=== PATIENT | female | born 1990 | race Caucasian/White ===

== ENCOUNTER 2016-11-30 04:00 | Inpatient (IN) | payer OTHER ==
[2016-11-30 04:40] LABS: BASOPHIL 0.2 % (0-2.0); EOSINOPHIL 0.4 % (0-4.5); MCH 29.5 pg (25.7-33.7); MCHC 32.2 g/dl (32.0-36.0); MEAN CELL VOLUME 91.6 fl (80-96); MEAN PLT VOLUME 9.9 fl (7.5-11.1); NEUTROPHILS 82.9 % (42.8-82.8); PLATELET COUNT 160 K/MM3 (134-434); RDW 15.2 % (11.6-15.6); WHITE BLOOD COUNT 16.4 K/mm3 (4.0-10.0)
[2016-11-30 05:04] LABS: INR 1.1 (0.82-1.09); PROTHROMBIN TIME (PATIENT) 12.1 SEC (9.98-11.88)
[2016-11-30 05:06] LABS: ACTIVATED PTT 26.3 SECONDS (26.9-34.4)
[2016-11-30 05:12] LABS: ALK PHOS 79 U/L (45-117); ANION GAP 13 (8-16); BILIRUBIN,TOTAL 0.2 mg/dL (0.2-1.0); CALCIUM 8.6 mg/dL (8.5-10.1); CO2 24 mmol/L (21-32); CREATININE 0.7 mg/dL (0.55-1.02); GLUCOSE,RANDOM 121 mg/dL (74-106); SGOT/AST 15 U/L (15-37); SGPT/ALT 28 U/L (12-78); TOT PROT 6.9 g/dl (6.4-8.2)
[2016-11-30 05:34] LABS: HIV 1 & 2 AB NEGATIVE; HIV 1 AGp24 NEGATIVE
--- NOTE | 2016-11-30 05:38 | HP ---
Past Medical History - Primary Care Physician PCP:: [facility] - Admission Chief Complaint: 26 @ 21wk4d presents fully dilated and pushing. History of Present Illness: 26 @ 21wk4d presents fully dilated and pushing. PNC at [facility]. ANC c/b 1. GBS bacteruria 2. CL on 11/19 was 2.5cm without evidence of funneling. Follow up appointment was made for 11/25, patient missed appointment. History Source: Patient Limitations to Obtaining History: No Limitations - Past Medical History HOOKER ON: No: Alzheimer's, CVA, Dementia, Migraine, Multiple Sclerosis, Peripheral Neuropathy, Parkinson's, Seizure, Syncope, TIA, Vertigo, Other Cardiovascular: No: AFIB, Aneurysm, Aortic Insufficiency, Aortic Stenosis, CAD, CHF, Deep Vein Thrombosis, HTN, Hyperlipdemia, PR, Mitral Insufficiency, Mitral Stenosis, Murmur, Pulmonary Hypertension, Other Pulmonary: No: Asthma, Bronchitis, Cancer, COPD, O2 Dependent, Pneumonia, Previously Intubated, Pulmonary Embolus, Pulmonary Fibrosis, Sleep Apnea, Other Gastrointestinal: No: Ascites, Cancer, Constipation, Crohn's Disease, Diverticulitis, Diverticulosis, Esophageal Varices, Gastritis, GERD, GI Bleed, Hemorrhoids, Hiatal Hernia, Inflamatory Bowel Disease, Irritable Bowel Disease, Pancreatitis, Peptic Ulcer Disease, Ulcerative Colitis, Other Hepatobiliary: No: Cirrhosis, Cholelithiasis, Cholecystitis, Choledocholithiasis , Hepatitis A, Hepatitis B, Hepatitis C, Other Renal/: No: Renal Failure, Renal Inusuff, BPH, Cancer, Hematuria, Hemodialysis , Neurogenic Bladder, Renal Calculi, UTI, Other ...: 1 ...Para: 0 ...Term: 0 ...: 0 ...Spon : 0 ...Induced : 0 ...Multiple Gestation: 0 ... Weeks Gestation by Dates: 21.4 ...EDC by Dates: 04/09/17 ...EDC by Sono: 04/08/17 Heme/Onc: No: Anemia, B12 Deficiency, Bleeding Disorder, Cancer, Current Chemotherapy, Current Radiation Therapy, Hemochromatosis, Hypercoaguable State, Myeloproliferative Synd, Sickle Cell Disease, Sickle Cell Trait, Thrombocytopenia, Other Infectious Disease: No: AIDS, C-Diff, Herpes Zoster, HIV, MRSA, STD's, Tuberculosis, VREF, Other Psych: No: Addictions, Anxiety, Bipolar, Depression, Panic, Psychosis, Schizophrenia, Other Musculoskeletal: No: Bursitis, Chronic low back pain, Hemiparesis, Hemiplegia, Osteoarthritis, Paraplegia, Other Rheumatology: No: Fibromyalgia, Gout, Lupus, Rheumatoid Arthritis, Sarcoidosis, Vasculitis, Other Endocrine: No: Dare's Disease, Alissa's Disease, Diabetes Insipidus, Diabetes Mellitus, Hyperparathyroidism, Hyperthyroidism, Hypothyroidism, Osteopenia, SIADH, Other Dermatology: No: Basal Cell, Cellulitis, Eczema, Melanoma, Psoriasis, Squamous Cell, Other - Past Surgical History Past Surgical History: Yes: None Hx Myomectomy: No Hx Transabdominal Cerclage: No - Smoking History Smoking history: Never smoked - Alcohol/Substance Use Hx Alcohol Use: No Home Medications - Allergies Allergies/Adverse Reactions: Allergies Allergy/AdvReac Type Severity Reaction Status Date / Time No Known Allergies Allergy Verified 09/27/16 14:44 - Home Medications Home Medications: Ambulatory Orders Ondansetron [Ondansetron Odt] 8 mg PO TID #30 tab.rapdis 09/23/16 Family Disease History - Family Disease History Family History: Unremarkable Review of Systems - Review of Systems Constitutional: denies: No Symptoms, Chills, Diaphoresis, Fever, Lethargy, Loss of Appetite, Malaise, Night Sweats, Unintentional Wgt. Loss, Weakness, Other Eyes: denies: No Symptoms, Blind Spots, Blurred Vision, Double Vision, Eye Pain , Floaters, Photophobia, Recent Change in Vision, Other Neck: denies: No Symptoms, Decreased ROM, Lumps, Pain on Movement, Stiffness, Swollen Glands, Tenderness, Other Cardiovascular: reports: No Symptoms Respiratory: reports: No Symptoms Gastrointestinal: reports: Other (uterine contractions) Genitourinary: reports: No Symptoms Musculoskeletal: reports: No Symptoms Integumentary: reports: No Symptoms Neurological: reports: No Symptoms Endocrine: reports: No Symptoms Hematology/Lymphatic: reports: No Symptoms Psychiatric: reports: No Symptoms Physical Exam - Maternity Constitutional: Yes: Well Nourished, No Distress Eyes: Yes: WNL HENT: Yes: WNL, Atraumatic, Normocephalic Neck: Yes: WNL Cardiovascular: Yes: WNL, Regular Rate and Rhythm Lungs: Clear to auscultation Breast(s): Yes: WNL - Abdominal Exam/OB Fundal Height: 20 Number of Fetuses: Single Presentation: Breech Contractions: Yes Regularity: Regular Intensity: Strong Monitor Mode: External Heart Rate (range): 150 - Vaginal Exam/OB Vaginal Bleediing: No Speculum Exam: Yes Dilatation (cm): 10 Effacement (%): 100 Amniotic Membrane Status: Intact Presentation: Double Footling Breech Station: +3 - Physical Exam Musculoskeletal: Yes: WNL Extremities: Yes: WNL Edema: No Integumentary: Yes: WNL Deep Tendon Reflex Grade: Absent 0 ...Motor Strength: WNL Psychiatric: Yes: WNL - Labs Lab Results: CBC, BMP 11/30/16 04:25 11/30/16 04:25 Problem List - Problems (1) 21 weeks gestation of Code(s): Z3A.21 - 21 WEEKS GESTATION OF (2) labor in second trimester with delivery Code(s): O60.10X0 - LABOR W DELIVERY, UNSP TRIMESTER, UNSP Assessment/Plan 26 @ 21wk4d in labor, fully dilated, requesting to push. Intact. FHR 165. VSS. AF. -Admit to L&D -Neonatology called -anticipate PTD
--- NOTE | 2016-11-30 05:53 | PN ---
Delivery - Delivery Vaginal Delivery: Spontaneous Type of Anesthesia: None Episiotomy/Laceration: None EBL (cc): 250 Delivery, Single - Stages of Labor Date 1st Stage Initiatied: 11/29/16 Time 1st Stage Initiated: 14:00 Date 2nd Stage Initiated: 11/30/16 Time 2nd Stage Initiated: 04:45 Date of Delivery: 11/30/16 Time of Delivery: 04:48 Date Placenta Delivered: 11/30/16 Time Placenta Delivered: 05:17 Placenta: Yes: Spontaneous, Manual Removal (Small portion of placenta at fundus removed with ring forceps under ultrasound guidance.) - Condition of [place] Ring Sewer/Systems Integration Engineer Present: Yes Gender: Male Remarks - Remarks Remarks: Patient fully dilated and pushing on arrival. Neonatology present. Neonatology explained there would be no resuscitation efforts at 21 weeks. Patient asked with she would like to hold the baby once delivered or if she would like it handed to RN, patient opted to hold baby. After 2 pushes, male delivered in double footling breech position. Membranes ruptured while pushing. Body delivered, followed by head at 4:48am. Cord clamped and cut. Baby handed to mom. Pitocin started, placenta removed. Small amount of placenta retained. Bedside ultrasound showed 1cm portion of placenta at fundus which was removed with ring forceps, afterwhich strip was thin and there was no color flow. Dr Dana Alves called to room and agreed on ultrasound it appeared there was no remaining placenta. Fundus firm, minimal bleeding. Total EBL 250cc. 's given by formulation technician Dr Patel, 1 minute: 1/0, at 5 minutes: 0/0. No anomalies noted. No nuchal cord present. Dr Patel formulation technician present for delivery and answered all questions regarding survival.
[2016-11-30] MEDS ORDERED: IBUPROFEN 600 MG TABLET (FP) PO PRN (06:03)
[2016-11-30] MEDS ORDERED: WITCH HAZEL 50% (TUCKS) 40 PAD/JAR PAD TP PRN (06:03)
[2016-11-30] MEDS ORDERED: BENZOCAINE 28 GM HEMORRHOIDAL OINTMENT TP PRN (06:03)
[2016-11-30] MEDS ORDERED: BENZOCAINE 20% 57 GM BOTTLE TP PRN (06:03)
[2016-11-30] MEDS ORDERED: METHYLERGONOVINE MALEATE 0.2 MG/1 ML AMP IM PRN (06:03)
[2016-11-30] MEDS ORDERED: BISACODYL 10 MG SUPP.RECT RC PRN (06:03)
[2016-11-30] MEDS ORDERED: ACETAMINOPHEN 325 MG TABLET (FP) PO PRN (06:03)
[2016-11-30] MEDS ORDERED: ceFAZolin 2 GRAM PREMIX BAG IVPB ONE (06:05)
[2016-11-30] MEDS ORDERED: MEPERIDINE HCL CARPU-JECT 50 MG/1 ML DISP.SYRIN IVPB ONE (06:07)
[2016-11-30 06:14] VITALS: BMI 23.0
[2016-11-30] MEDS ORDERED: DEXTROSE 5%-LACTATED RINGERS 1,000 ML IV SCH (06:15)
[2016-11-30] MEDS ORDERED: D5W-LR W/ 20 UNITS OXYTOCIN 1,000 ML IV SCH (06:15)
--- NOTE | 2016-11-30 06:34 | PN ---
Progress Note (short form) - Note Progress Note: Called to delivery at 21 weeks gestation. Mother presented fully dilated and delivered shortly after presentation. ROM was at delivery. At , initial heart beat present. Fetus noted to have translucent skin, fused eye lids, small. Apgars 1/0 at 1 and 5 minutes. Both to parents multiple times and informed of pre-viable status of fetus.
[2016-11-30] MEDS ORDERED: CEFAZOLIN 1 GM/D5W 50 ML IVPB SCH (13:00)
[2016-11-30 15:04] VITALS: BP 116/64; PULSE 99; TEMP 98.3
[2016-12-01] MEDS ORDERED: SENNOSIDES/DOCUSATE COMBO (SENNA PLUS) TABLET (UD) PO PRN (22:00)
--- NOTE | 2016-12-03 14:37 | PATH ---
Surgical Pathology Report Patient Name: PONCHO LUCIA Med. Rec. #: [id number] /Age/Gender: 1990 (Age: 26) / F Account: [id number] Location: [facility] OBS/ADMINISTRATION INTERN Taken: 11/30/2016 Received: 11/30/2016 Reported: 12/03/2016 Physicians: Yakelin Welch M.D Specimen(s) Received PLACENTA Clinical History 21.4 weeks gestation; short cervix, Spontaneous vaginal delivery Final Diagnosis PLACENTA, DELIVERY: MULTIFOCALLY DISRUPTED IMMATURE SECOND TRIMESTER PLACENTA WITH MILD PREVILLOUS, PERIVILLOUS, AND PRECHORIONIC FIBRIN DEPOSITION, THREE VESSEL UMBILICAL CORD, AND PLACENTAL MEMBRANES WITH FOCAL EARLY ACUTE CHORIOAMNIONITIS. Electronically Signed George Zepeda M.D. Gross Description The specimen is received fresh, labeled 'placenta" and is a 209 gram, 12.0 x 11.0 x 2.0 cm placenta with attached membranes and umbilical cord. The attached membranes are dolan, translucent focal opacities and insert marginally. The umbilical cord measures 16 cm in length and averages 0.8 cm in diameter. The cord inserts eccentrically, 2.5 cm to the nearest margin. No true knots or strictures are identified. Cut surface of the umbilical cord reveals 3 vessels. The surface is vale-blue with fibrin deposition and appropriate caliber vessels. The maternal surface is dolan, markedly fragmented and disrupted. Sectioning reveals pale dolan, spongy parenchyma. No focal lesions are identified. Die Trimmer sections are submitted in 4 cassettes as follows: 1- membrane rolls and umbilical cord; 2- 4- full thickness sections of placenta. /12/02/2016 [facility]12/02/2016
--- NOTE | 2016-12-15 10:54 | DS ---
Physical Exam-CUSTOMER SOLUTIONS SPECIALIST Vital Signs: Vital Signs Temperature 98.3 F 11/30/16 14:00 Pulse Rate 99 H 11/30/16 14:00 Respiratory Rate 20 11/30/16 14:00 Blood Pressure 116/64 11/30/16 14:00 O2 Sat by Pulse Oximetry (%) 99 11/30/16 07:56 Constitutional: Yes: Well Nourished, No Distress Eyes: Yes: WNL HENT: Yes: WNL, Atraumatic, Normocephalic Neck: Yes: WNL Cardiovascular: Yes: WNL, Regular Rate and Rhythm Respiratory: Yes: WNL, Regular Gastrointestinal: Yes: WNL, Normal Bowel Sounds ...Rectal Exam: Yes: WNL Renal/: Yes: WNL Pelvis: Yes: WNL External Genitalia: Yes: Normal Vaginal Exam: Yes: Normal Cervix: Yes: Normal Uterus: Yes: Normal ....Post : Yes: Uterus firm, Uterus non-tender Integumentary: Yes: WNL Neurological: Yes: WNL ...Motor Strength: WNL Labs: CBC, BMP 11/30/16 04:25 11/30/16 04:25 Delivery - Delivery Vaginal Delivery: Spontaneous Type of Anesthesia: None Episiotomy/Laceration: None EBL (cc): 250 Delivery, Single - Stages of Labor Date 1st Stage Initiatied: 11/29/16 Time 1st Stage Initiated: 14:00 Date 2nd Stage Initiated: 11/30/16 Time 2nd Stage Initiated: 04:45 Date of Delivery: 11/30/16 Time of Delivery: 04:48 Time Placenta Delivered: 05:17 Placenta: Yes: Spontaneous, Manual Removal (Small portion of placenta at fundus removed with ring forceps under ultrasound guidance.) - Condition of Flour Inspector/Mapping Supervisor Present: Yes Name: Melony Patel Infant Gender: Male Weight: 1 lb 8 oz Total Hours ROM (Hrs/Mins): 0h30m - 1 Minute Total Score: 1 5 Minutes Total Score: 0 - [place] Feeding Plan Initial Plan: Exclusive throughout hospitalization Remarks - Remarks Remarks: Patient fully dilated and pushing on arrival. Neonatology present. Neonatology explained there would be no resuscitation efforts at 21 weeks. Patient asked with she would like to hold the baby once delivered or if she would like it handed to RN, patient opted to hold baby. After 2 pushes, male infant delivered in double footling breech position. Membranes ruptured while pushing. Body delivered, followed by head at 4:48am. Cord clamped and cut. Baby handed to mom. Pitocin started, placenta removed. Small amount of placenta retained. Bedside ultrasound showed 1cm portion of placenta at fundus which was removed with ring forceps, afterwhich strip was thin and there was no color flow. Dr Dana Alves called to room and agreed on ultrasound it appeared there was no remaining placenta. Fundus firm, minimal bleeding. Total EBL 250cc. 's given by spanish medical interpreter Dr Patel, 1 minute: 1/0, at 5 minutes: 0/0. No anomalies noted. No nuchal cord present. Dr Patel spanish medical interpreter present for delivery and answered all questions regarding survival. Discharged home PPD#1, with follow up at 2 [facility]. Discharge Summary Reason For Visit: LABOR ADMIT Condition: Stable - Instructions Diet, Activity, Other Instructions: BREAST CARE: Wear tight fitting bra. Take Tylenol or Motrin for pain. Apply cold packs (ice in bags to each breast ) Call Clinic or got to Emergency Dept if you have any of the following: Heavy vaginal bleeding Painful urination Leg pain Unusual odor noted to vaginal bleeding High fever Red streaking noted on breast Regular diet Motrin 600mg q6hrs prn pain f/u 2 [facility] in 1 week Referrals: Yakelin Welch MD [Staff Physician] - Disposition: HOME - Home Medications Comprehensive Discharge Medication List: Ambulatory Orders Ondansetron [Ondansetron Odt] 8 mg PO TID #30 tab.rapdis 09/23/16 Ibuprofen [Motrin -] 600 mg PO QID #28 tablet 11/30/16
== END 2016-11-30 15:40 | disposition home or self-care (01) | DRG 560 ==
LOC: JLDR 04:00 → J3W 08:15
PROVIDERS: ADMIT Obstetrics & Gynecology; ATTEND Obstetrics & Gynecology
PROC: 10E0XZZ Delivery of Products of Conception, External Approach (ICD-10-PCS; principal; 2016-11-30)
DX: O60.12X0 Preterm labor second trimester with preterm delivery second trimester, not applicable or unspecified (principal); O32.8XX0 Maternal care for other malpresentation of fetus, not applicable or unspecified; Z3A.21 21 weeks gestation of pregnancy; Z37.1 Single stillbirth
CPT/HCPCS: 36415; 59409; 80053; 85025; 85610; 85730; 86593; 86762; 86850; 86900; 86901; 87340; 87389; 88307-TC

== ENCOUNTER 2017-03-04 17:32 | Emergency (ER) | payer OTHER ==
[2017-03-04 17:48] VITALS: BP 150/90; PULSE 76; TEMP 97.6; BMI 23.8
[2017-03-04] MEDS ORDERED: KETOROLAC TROMETHAMINE 60 MG/2 ML VIAL IM ONE (18:42)
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
[2017-03-04] MEDS ORDERED: SILVER SULFADIAZINE 1% TOP CREAM 50 GM JAR TP ONE ×2 (18:52→19:38)
--- NOTE | 2017-03-04 18:56 | PDOC ---
History of Present Illness - General Chief Complaint: Burn Stated Complaint: BURN Time Seen by Provider: 03/04/17 18:36 History Source: Patient Exam Limitations: No Limitations - History of Present Illness Initial Comments: 03/04/17 18:38 Occurred: reports: just prior to arrival Past History - Past Medical History Allergies/Adverse Reactions: Allergies Allergy/AdvReac Type Severity Reaction Status Date / Time No Known Allergies Allergy Verified 03/04/17 17:32 Home Medications: Ambulatory Orders Ondansetron [Ondansetron Odt] 8 mg PO TID #30 tab.rapdis 09/23/16 Ibuprofen [Motrin -] 600 mg PO QID #28 tablet 11/30/16 Asthma: No Cancer: No Cardiac Disorders: No Diabetes: No HTN: No Seizures: No Thyroid Disease: No - Surgical History Abdominal Surgery: Yes (UMBILICAL HERNIA) - Reproductive History (#): 1 Para: 0 Therapeutic (s) & number: No - Psycho/Social/Smoking Cessation Hx Suicidal Ideation: No Smoking History: Never smoked Have you smoked in the past 12 months: No Information on smoking cessation initiated: No Hx Alcohol Use: No Drug/Substance Use Hx: No Hx Substance Use Treatment: No *Physical Exam - Vital Signs Last Vital Signs Temp Pulse Resp BP Pulse Ox 97.6 F 76 20 150/90 99 03/04/17 17:34 03/04/17 17:34 03/04/17 17:34 03/04/17 17:34 03/04/17 17:34
[2017-03-04] MEDS ORDERED: KETOROLAC TROMETHAMINE 60 MG/2 ML VIAL ONE (19:38)
[2017-03-04] MEDS ORDERED: OXYCODONE/APAP 5/325MG COMBO TABLET PO ONE (20:25)
[2017-03-04] MEDS ORDERED: OXYCODONE/APAP 5/325MG COMBO TABLET ONE (20:28)
== END 2017-03-04 20:41 | disposition home or self-care (01) ==
LOC: JERFT 17:32
PROC: 2W24X4Z Dressing of Chest Wall using Bandage (ICD-10-PCS; principal; 2017-03-04)
PROC: 2W2CX4Z Dressing of Right Lower Arm using Bandage (ICD-10-PCS; 2017-03-04)
PROC: 2W21X4Z Dressing of Face using Bandage (ICD-10-PCS; 2017-03-04)
PROC: 3E0233Z Introduction of Anti-inflammatory into Muscle, Percutaneous Approach (ICD-10-PCS; 2017-03-04)
DX: T21.01XA Burn of unspecified degree of chest wall, initial encounter (principal); T22.011A Burn of unspecified degree of right forearm, initial encounter; T20.03XA Burn of unspecified degree of chin, initial encounter; T31.11 Burns involving 10-19% of body surface with 10-19% third degree burns; X10.1XXA Contact with hot food, initial encounter; Y93.G3 Activity, cooking and baking; Y92.030 Kitchen in apartment as the place of occurrence of the external cause
CPT/HCPCS: 16030; 84703; 96372; 99281-25